=== PATIENT | female | born 1980 | race Caucasian/White ===

== ENCOUNTER 2016-12-07 10:29 | Day surgery (SDC) | payer OTHER, MEDICAID ==
[2016-12-06 15:42] LABS: HEMOGLOBIN 13.7 g/dL (11.7-16.4); WHITE BLOOD COUNT 5.9 x10^3/uL (3.4-10)
[~2016-12-07] VITALS: Ht 160 cm; Wt 64.7 kg
[~2016-12-07 10:29] MED LIST: BUPIVACAINE/PF 0.25% ONE; EPINEPHRINE 1 MG/ML, 1ML ONE; IBUP200T48 PO; No meds per pt.; OXYC-302 PO
[2016-12-07 10:51] VITALS: BP 110/71
[2016-12-07] MEDS ORDERED: LACTATED RINGERS 1,000 ML IV SCH (10:53)
[2016-12-07 10:55] LABS: HCG UR LOT HCG7030192
[2016-12-07] MEDS ORDERED: LIDOCAINE 1%, 2ML SQ PRN (11:00)
[2016-12-07 11:12] LABS: HCG UR OBC PASS
[2016-12-07] MEDS ORDERED: MIDAZOLAM 1 MG/ML, 2ML ONE (11:44)
[2016-12-07] MEDS ORDERED: FENTANYL PF 100 MCG/2ML ONE ×2 (11:44→13:58)
[2016-12-07] MEDS ORDERED: LIDOCAINE 4%, 4 ML SYR/CANN TP ONE (12:15)
[2016-12-07] MEDS ORDERED: PROPOFOL 10 MG/ML, 20ML ONE (12:18)
[2016-12-07] MEDS ORDERED: ROCURONIUM 10 MG/ML ONE (12:19)
[2016-12-07] MEDS ORDERED: KETOROLAC 30 MG/1 ML ONE (12:19)
[2016-12-07] MEDS ORDERED: DEXAMETHASONE 4 MG/ML, 1ML ONE ×2 (12:20)
[2016-12-07] MEDS ORDERED: ONDANSETRON 2MG/ML, 2ML ONE ×3 (12:20→12:34)
[2016-12-07] MEDS ORDERED: NEOSTIGMINE 1 MG/ML, 10ML ONE (13:13)
[2016-12-07] MEDS ORDERED: GLYCOPYRROLATE 0.4 MG/2 ML, 2ML ONE (13:13)
[2016-12-07] MEDS ORDERED: FENTANYL PF 100 MCG/2ML IV PRN (13:30)
[2016-12-07] MEDS ORDERED: PROMETHAZINE 25 MG/ML, 1ML IV PRN (13:30)
[2016-12-07] MEDS ORDERED: OXYcodone 5 MG/5 ML ORAL.SOL UDC PO PRN (13:30)
[2016-12-07] MEDS ORDERED: ACETAMINOPHEN 325 MG TABLET PO PRN (13:30)
[2016-12-07] MEDS ORDERED: MEPERIDINE/PF 25MG/0.5ML IVPush PRN (13:30)
[2016-12-07] MEDS ORDERED: ONDANSETRON 2MG/ML, 2ML IVPush PRN (13:30)
[2016-12-07] MEDS ORDERED: HYDROmorphone 1 MG/ML, 1ML IV PRN (13:30)
[2016-12-07] MEDS ORDERED: ACETAMINOPHEN 650 MG/20.3 ML UDC ONE (13:31)
[2016-12-07] MEDS ORDERED: OXYcodone 5 MG/5 ML ORAL.SOL UDC ONE (13:32)
== END 2016-12-07 17:20 | disposition home or self-care (01) ==
LOC: OUT 10:29
PROVIDERS: ATTEND Obstetrics & Gynecology
DX: Z30.2 Encounter for sterilization (principal); J45.909 Unspecified asthma, uncomplicated; Z90.49 Acquired absence of other specified parts of digestive tract; Z98.890 Other specified postprocedural states; Z88.5 Allergy status to narcotic agent
CPT/HCPCS: 36415; 58300; 58661; 81001; 81025; 85025; 86850; 86900; 87086; 88302; J0171; J1100; J1885; J2250; J2405; J2704; J2710; J3010; J3490; J7120